=== PATIENT | female | born 1960 | race African-American/Black ===

== ENCOUNTER 2022-11-26 03:57 | Day surgery (SDC) | payer BC, OTHER ==
[2022-11-21 16:18] VITALS: BMI 29.5
[2022-11-26] MEDS ORDERED: KETOROLAC TROMETHAMINE 30 MG/1 ML VIAL ONE (07:34)
[2022-11-26] MEDS ORDERED: LIDOCAINE HCL/PF 2% SDV 5ML VIAL ONE (07:34)
[2022-11-26] MEDS ORDERED: ONDANSETRON 4 MG/2 ML VIAL ONE (07:34)
[2022-11-26] MEDS ORDERED: PROPOFOL 40 ML ONE (07:34)
[2022-11-26] MEDS ORDERED: DEXAMETHASONE SOD PHOSPHATE 4 MG/1 ML VIAL ONE (07:34)
[2022-11-26] MEDS ORDERED: IBUPROFEN 600 MG TABLET (FP) PO PRN (07:41)
[2022-11-26] MEDS ORDERED: ONDANSETRON 4 MG/2 ML VIAL IVPUSH PRN (07:41)
[2022-11-26] MEDS ORDERED: IBUPROFEN 800 MG/8 ML IJ IVPB PRN (07:41)
[2022-11-26] MEDS ORDERED: oxyCODONE HCL 5 MG TABLET PO PRN (07:41)
[2022-11-26] MEDS ORDERED: ELECTROLYTE-148 SOLN 1,000 ML IV SCH (07:45)
[2022-11-26] MEDS ORDERED: SEVOFLURANE 250 ML BTL ONE (08:01)
[2022-11-26] MEDS ORDERED: PROMETHAZINE HCL 25 MG/1 ML VIAL IVPB PRN (08:49)
[2022-11-26] MEDS ORDERED: LACTATED RINGERS SOLUTION 1,000 ML IV SCH (09:00)
[2022-11-26 09:13] VITALS: RESP 18
[2022-11-26 10:51] VITALS: BP 120/75; PULSE 66; TEMP 98
== END 2022-11-26 10:54 | disposition home or self-care (01) ==
LOC: JASU-SURG 03:57
PROVIDERS: ATTEND Obstetrics & Gynecology
PROC: 0UB98ZZ Excision of Uterus, Via Natural or Artificial Opening Endoscopic (ICD-10-PCS; principal; 2022-11-26 07:30)
DX: N95.0 Postmenopausal bleeding (principal); N84.0 Polyp of corpus uteri
CPT/HCPCS: 82962; 87086; 88305-TC; 94760

== ENCOUNTER 2024-09-05 02:04 | Inpatient (IN) | payer BC, OTHER ==
[2024-09-05] MEDS ORDERED: MORPHINE SULFATE 2 MG/ML SYRINGE ONE (03:14)
[2024-09-05] MEDS: morphine CARPU-JECT 4 MG/1 ML DISP.SYRIN IVPUSH ONE (03:20)
[2024-09-05 03:57] LABS: HEMATOCRIT 31.4 % (32.4-45.2); MCH 31.1 pg (25.7-33.7); MCHC 31.7 g/dl (32.0-36.0); MEAN PLT VOLUME 7.3 fl (7.5-11.1); PLATELET COUNT 235 10^3/uL (134-434); RDW 14.6 % (11.6-15.6)
[2024-09-05 04:17] LABS: WHITE BLOOD COUNT 52.4 K/mm3 (4.0-10.0)
[2024-09-05 04:18] LABS: POTASSIUM 3.5 mmol/L (3.5-5.1)
[2024-09-05 04:21] LABS: INR 1.14 (0.83-1.09); PROTHROMBIN TIME (PATIENT) 12.5 SEC (9.7-13.0)
[2024-09-05 04:23] LABS: ALBUMIN 3.3 g/dl (3.4-5.0); CALCIUM 9.6 mg/dL (8.5-10.1)
[2024-09-05 04:24] LABS: ACTIVATED PTT 31.3 SECONDS (25.2-36.5); BLOOD UREA NITROGEN 8.7 mg/dL (7-18); MAGNESIUM 2.1 mg/dL (1.8-2.4)
[2024-09-05 04:26] LABS: CREATININE 0.6 mg/dL (0.55-1.3); PHOSPHOROUS 3.9 mg/dL (2.5-4.9)
[2024-09-05 04:28] LABS: BILIRUBIN,TOTAL 0.4 mg/dL (0.2-1); TOT PROT 5.9 g/dl (6.4-8.2)
[2024-09-05] MEDS: DEXTROSE 5%-NORMAL SALINE 1,000 ML IV ONE (04:55)
[2024-09-05] MEDS ORDERED: KETOROLAC TROMETHAMINE 30 MG/1 ML VIAL ONE (06:10)
[2024-09-05] MEDS: KETOROLAC TROMETHAMINE 30 MG/1 ML VIAL IVPUSH ONE (06:15)
[2024-09-05 08:08] LABS: URINE APPEARANCE CLEAR; URINE BILIRUBIN NEGATIVE (NEGATIVE); URINE COLOR YELLOW; URINE GLUCOSE (UA) NEGATIVE (NEGATIVE); URINE KETONE NEGATIVE (NEGATIVE); URINE LEUK ESTERASE NEGATIVE (NEGATIVE); URINE NITRITE NEGATIVE (NEGATIVE); URINE PROTEIN NEGATIVE (NEGATIVE)
[2024-09-05] MEDS ORDERED: POLYETHYLENE GLYCOL (HEALTHYLAX) 3350 17 GM PACKET ONE (11:13)
[2024-09-05] MEDS: INSULIN ASPART SLIDING SCALE (NOVOLOG) 1 VIAL SQ SCH (11:21)
[2024-09-05] MEDS: SODIUM PHOSPHATE/NA BIPHOS 133 ML ENEMA RC ONE (11:50)
[2024-09-05] MEDS: POLYETHYLENE GLYCOL (HEALTHYLAX) 3350 17 GM PACKET PO SCH (11:50)
[2024-09-05] MEDS: VALSARTAN 160 MG TABLET PO SCH (12:27)
[2024-09-05] MEDS: oxyCODONE HCL 5 MG TABLET PO PRN (13:45)
[2024-09-05] MEDS: ACETAMINOPHEN 325 MG TABLET (FP) PO PRN (13:51)
[2024-09-05] MEDS ORDERED: metFORMIN HCL 500 MG TABLET (FP) PO SCH (14:00)
[2024-09-05 15:07] VITALS: RESP 18; TEMP 97.9; BMI 17.5
[2024-09-05 16:15] LABS: HEMATOCRIT 30.1 % (32.4-45.2); HEMOGLOBIN 9.7 GM/dL (10.7-15.3); MCHC 32.1 g/dl (32.0-36.0); MEAN CELL VOLUME 96.7 fl (80-96); PLATELET COUNT 229 10^3/uL (134-434); RBC 3.11 M/mm3 (3.60-5.2); RDW 14.5 % (11.6-15.6)
[2024-09-05 16:25] LABS: WHITE BLOOD COUNT 57.4 K/mm3 (4.0-10.0)
[2024-09-05 20:44] VITALS: BP 110/63; PULSE 75
[2024-09-05] MEDS: SENNOSIDES 8.8 MG/5 ML SYRUP PO SCH (21:38)
[2024-09-06] MEDS: LATANOPROST 0.005% OPHTH SOLN 2.5ML BOTTLE OU SCH (00:02)
[2024-09-06] MEDS: oxyCODONE HCL 5 MG TABLET PO ONE (02:17)
[2024-09-06 08:15] LABS: HEMATOCRIT 29.6 % (32.4-45.2); HEMOGLOBIN 9.5 GM/dL (10.7-15.3); MCH 31.7 pg (25.7-33.7); MCHC 32.1 g/dl (32.0-36.0); MEAN CELL VOLUME 98.8 fl (80-96); MEAN PLT VOLUME 7.3 fl (7.5-11.1); PLATELET COUNT 225 10^3/uL (134-434); RBC 2.99 M/mm3 (3.60-5.2); RDW 14.1 % (11.6-15.6)
[2024-09-06 08:27] LABS: CHLORIDE 105 mmol/L (98-107); SODIUM 142 mmol/L (136-145)
[2024-09-06 08:30] LABS: WHITE BLOOD COUNT 58.1 K/mm3 (4.0-10.0)
[2024-09-06 08:34] LABS: ALBUMIN 3.2 g/dl (3.4-5.0); BLOOD UREA NITROGEN 5.5 mg/dL (7-18); CO2 28 mmol/L (21-32); CREATININE 0.5 mg/dL (0.55-1.3); SGPT/ALT 20 U/L (13-61)
[2024-09-06 08:35] LABS: CALCIUM 9.2 mg/dL (8.5-10.1)
[2024-09-06 08:36] LABS: ALK PHOS 177 U/L (45-117); ANION GAP 9 mmol/L (4-13); BILIRUBIN,TOTAL 0.4 mg/dL (0.2-1); GLUCOSE,RANDOM 50 mg/dL (74-106); POTASSIUM 2.9 mmol/L (3.5-5.1); TOT PROT 5.5 g/dl (6.4-8.2)
[2024-09-06 08:37] LABS: SGOT/AST 17 U/L (15-37)
[2024-09-06] MEDS: POTASSIUM CHLORIDE ORAL LIQUID 20 MEQ/15 ML PO ONE ×2 (08:53→10:23)
[2024-09-06 09:28] LABS: ANISOCYTOSIS 0; MACROCYTOSIS 0
[2024-09-06] MEDS: ASPIRIN 81 MG CHEWABLE TABLETS PO SCH (09:40)
[2024-09-06] MEDS: EZETIMIBE 10 MG TABLET (FP) PO SCH (09:40)
[2024-09-06] MEDS: HEPARIN NA (PORCINE) 5,000 UNITS/ML 1ML VIAL SQ SCH (09:40)
[2024-09-06] MEDS: METHYLNALTREXONE BROMIDE 8 MG/0.4 ML SYRINGE SQ ONE (09:40)
[2024-09-06] MEDS ORDERED: HYDROCHLOROTHIAZIDE 12.5 MG CAPSULE (FP) PO SCH (10:00)
[2024-09-06] MEDS ORDERED: ROSUVASTATIN CA 20 MG TABLET PO SCH (22:00)
== END 2024-09-06 12:23 | disposition home or self-care (01) | DRG 392 ==
LOC: JER 02:04 → JERBED 07:28 → J6S 12:55
PROVIDERS: ADMIT Internal Medicine; ATTEND Internal Medicine
DX: K59.03 Drug induced constipation (principal); C25.9 Malignant neoplasm of pancreas, unspecified; C78.7 Secondary malignant neoplasm of liver and intrahepatic bile duct; Z68.1 Body mass index [BMI] 19.9 or less, adult; T40.2X5A Adverse effect of other opioids, initial encounter; G89.29 Other chronic pain; D72.829 Elevated white blood cell count, unspecified; R53.81 Other malaise; R63.4 Abnormal weight loss
CPT/HCPCS: 0241U-QW; 36415; 71045-TC-FY; 74018-TC-FY; 74177-TC; 80053; 81003; 82962; 83605; 83690; 83735; 84100; 85025; 85027; 85610; 85730; 86301; 87086; 93005; 93010; 99285-25; J1644; Q9967